=== PATIENT | male | born 2000 | race Two or more races ===

== ENCOUNTER 2019-01-10 03:54 | Emergency (ER) | payer SELFPAY ==
[2019-01-10] MEDS ORDERED: IPRATROPIUM/ALBUTEROL 0.5-2.5 MG/3 ML AMPUL NEB ONE (06:38)
[2019-01-10] MEDS ORDERED: PREDNISONE 20 MG TABLET PO ONE (06:53)
[2019-01-10] MEDS ORDERED: ALBUTEROL SULFATE HFA (90 MCG/PUFF) 8 GM MDI (1 MDI/ER DISP) IH ONE (07:10)
--- NOTE | 2019-01-10 07:54 | ER Document Report ---
ED General - General Chief Complaint: Shortness Of Breath Stated Complaint: WHEEZING Time Seen by Provider: 01/10/19 06:38 Primary Care Provider: ANAHI COYLE MD [ACTIVE STAFF] - Follow up as needed TRAVEL OUTSIDE OF THE [place] IN LAST 30 DAYS: No - HPI Patient complains to provider of: Shortness of breath wheezing Notes: Patient coming in for evaluation of shortness of breath and wheezing. Patient states history of childhood asthma. Patient states he was supposed to smoke was smoking however now is quit. Patient states shortness of breath with no cough no fevers no night sweats no sputum production. Patient otherwise resting comfortably upon my evaluation denies any recent travel denies chest pain fever chills nausea vomiting diarrhea. - Related Data Allergies/Adverse Reactions: No Known Allergies Allergy (Unverified 01/10/19 03:57) Past Medical History - Social History Smoking Status: Former Smoker Frequency of alcohol use: Rare Drug Abuse: None Family History: Reviewed & Not Pertinent Patient has suicidal ideation: No Patient has homicidal ideation: No Pulmonary Medical History: Reports: Hx Asthma Renal/ Medical History: Denies: Hx Peritoneal Dialysis Past Surgical History: Reports: Hx Orthopedic Surgery - bilat knees Review of Systems - Review of Systems Constitutional: No symptoms reported EENT: No symptoms reported Cardiovascular: No symptoms reported Respiratory: Short of breath - Is, Wheezing Gastrointestinal: No symptoms reported Genitourinary: No symptoms reported Male Genitourinary: No symptoms reported Musculoskeletal: No symptoms reported Skin: No symptoms reported Hematologic/Lymphatic: No symptoms reported Neurological/Psychological: No symptoms reported -: Yes All other systems reviewed and negative Physical Exam - Vital signs Vitals: Pulse Resp BP Pulse Ox 101 H 16 101/74 98 01/10/19 07:57 01/10/19 07:57 01/10/19 07:57 01/10/19 07:57 Interpretation: Normal - General General appearance: Appears well, Alert - HEENT Head: Normocephalic, Atraumatic Eyes: Normal Pupils: PERRL - Respiratory Respiratory status: No respiratory distress Chest status: Nontender Breath sounds: Wheezing - Diffuse coarse wheezes in all lung christian Chest palpation: Normal - Cardiovascular Rhythm: Regular Heart sounds: Normal auscultation Murmur: No - Abdominal Inspection: Normal Distension: No distension Bowel sounds: Normal Tenderness: Nontender Organomegaly: No organomegaly - Back Back: Normal, Nontender - Extremities General upper extremity: Normal inspection, Nontender, Normal color, Normal ROM, Normal temperature General lower extremity: Normal inspection, Nontender, Normal color, Normal ROM, Normal temperature, Normal weight bearing. No: Shelley's sign - Neurological Neuro grossly intact: Yes Cognition: Normal Orientation: AAOx4 Neli Coma Scale Eye Opening: Spontaneous [place] Coma Scale Verbal: Oriented Neli Coma Scale Motor: Obeys Commands [place] Coma Scale Total: 15 Speech: Normal Motor strength normal: LUE, RUE, LLE, RLE Sensory: Normal - Psychological Associated symptoms: Normal affect, Normal mood - Skin Skin Temperature: Warm Skin Moisture: Dry Skin Color: Normal Course - Re-evaluation Re-evalutation: 01/10/19 12:45 Bronchodilator therapy was initiated with the patient with resolution of his wheezing. We will start the patient on prednisone will give the patient an inhaler prescription for inhalers. Patient states he also has a nebulizer at home albuterol was given for the patient to use at home. Patient will be discharged on follow-up primary care physician. - Vital Signs Vital signs: Temp Pulse Resp BP Pulse Ox 101 H 16 101/74 98 01/10/19 07:57 01/10/19 07:57 01/10/19 07:57 01/10/19 07:57 Discharge - Discharge Clinical Impression: Asthma Qualifiers: Asthma severity: mild Asthma persistence: unspecified Asthma complication type: uncomplicated Qualified Code(s): J45.909 - Unspecified asthma, uncomplicated Condition: Good Disposition: HOME, SELF-CARE Instructions: Asthma ([facility]) Additional Instructions: Please use the inhaler that we gave you here in ER 2 puffs every 4 hours as needed for shortness of breath. He may also use a nebulizer instead of the inhaler. Please take steroids as prescribed Avoid any smoke allergens or strong perfumes. Prescriptions: Albuterol Sulfate [Proair HFA Inhalation Aerosol 8.5 gm MDI] 2 puff IH Q4H PRN #1 mdi PRN Reason: Albuterol Sulfate [Ventolin 0.083% Neb 2.5 mg/3 mL Ampul] 2.5 mg NEB Q4 #30 vial.neb Prednisone [Deltasone 20 mg Tablet] 3 tab PO DAILY 5 Days tablet Forms: Smoking Cessation Education, Return to Work Referrals: ANAHI COYLE MD [ACTIVE STAFF] - Follow up as needed
[2019-01-10 07:58] VITALS: BP 101/74
== END 2019-01-10 08:00 | disposition home or self-care (01) ==
LOC: ER 03:54
DX: J45.909 Unspecified asthma, uncomplicated (principal); F17.200 Nicotine dependence, unspecified, uncomplicated
CPT/HCPCS: 94640; 99284; J7512; J3490; J7620